=== PATIENT | female | born 1945 | race Caucasian/White ===

== ENCOUNTER 2021-10-17 11:49 | Emergency (ER) | payer MEDICARE, OTHER ==
[2021-10-17 12:42] VITALS: BP 107/67; PULSE 80
== END 2021-10-17 12:57 | disposition home or self-care (01) ==
LOC: DL.ED 11:49
DX: S90.31XA Contusion of right foot, initial encounter (principal); Z88.6 Allergy status to analgesic agent; Z88.5 Allergy status to narcotic agent; Z79.899 Other long term (current) drug therapy; W18.2XXA Fall in (into) shower or empty bathtub, initial encounter
CPT/HCPCS: 73630-RT; 99283